=== PATIENT | female | born 1960 | race Caucasian/White ===

== ENCOUNTER → 2017-10-09 | Outpatient (CLI) | payer BC ==
--- NOTE | 2017-10-09 09:34 | US ---
EXAMINATION TYPE: US thyroid st tissue head/neck DATE OF EXAM: 10/09/2017 COMPARISON: NONE CLINICAL HISTORY: E02 Subclinical Iodine-Deficiency Hypothyroidism. GLAND SIZE: Right Lobe: 4.7 x 1.9 x 2.3 cm Overall Parenchyma: heterogenous Left Lobe: 4.5 x 1.6 x 1.9 cm Overall Parenchyma: heterogeneous Isthmus Thickness: 0.5 cm NODULES RIGHT: # of nodules measured on right: 0 LEFT: # of nodules measured on left: 0 ISTHMUS: # of nodules measured in the isthmus: 0 Bilateral neck scanned, normal appearing lymph nodes visualized Heterogeneous thyroid gland with diffusely increased vascular flow. No discrete measurable nodules ar e seen. IMPRESSION: Diffusely heterogenous and hypervascular thyroid gland suggests thyroiditis.
--- NOTE | 2017-10-10 10:38 | NM ---
EXAMINATION TYPE: NM thyroid image w uptake DATE OF EXAM: 10/10/2017 COMPARISON: Thyroid ultrasound yesterday. HISTORY: Subclinical iodine deficiency hypothyroidism per order. TECHNIQUE: Thyroid iodine uptake is calculated and images performed after the oral administration of 315 uCi I-123 uCi 1-123 Capsule. FINDINGS: There is heterogeneous distribution of activity throughout the gland slightly more prominen t and uniform in the right lobe versus left lobe. The 4 hour iodine uptake is calculated at 11% (nor mal range 8-14%), in the normal range. The 25-hour iodine uptake is calculated at 31% (normal range 1 5-35%), in the normal range. IMPRESSION: Heterogeneous scan correlates with ultrasound, normal uptake noted.
== END | disposition home or self-care (01) ==
LOC: RADUSMAIN 08:34
PROVIDERS: ATTEND Internal Medicine
DX: E07.9 Disorder of thyroid, unspecified (principal)
CPT/HCPCS: 76536; 78014

== ENCOUNTER → 2017-10-28 | Outpatient (CLI) | payer BC ==
--- NOTE | 2017-10-28 12:40 | BD ---
EXAMINATION TYPE: MG DEXA axial skeleton. DATE OF EXAM: 10/28/2017 COMPARISON: 06.16.2010 CLINICAL HISTORY: 57 YR OLD FEMALE: ICD-10 CODE: M85.9 DISORDER OF BONE Height: 65 Weight: 219 FRAX RISK QUESTIONS: Alcohol (3 or more units per day): NO Family History (Parent hip fracture): NO Glucocorticoids (More than 3mos): NO (Ex: prednisone, prednisolone, methylprednisolone, dexamethasone, and hydrocortisone). History of Fracture in Adulthood: YES Secondary Osteoporosis: YES 1. Type 1 Diabetes: NO 2. Hyperthyroidism: NO 3. Menopause before 45: YES 4. Malnutrition: NO 5. Chronic liver disease: NO Rheumatoid Arthritis: NO Current Tobacco Use: NO RISK FACTORS HISTORY OF: RT BROKEN GREAT TOE...> 50 YRS OLD Family History of Osteoporosis: NO Active: SO SO Diet low in dairy products/other sources of calcium: NO Postmenopausal woman: YES AT 36 YRS OLD Lost more than 2 inches in height since high school: NO Hyperparathyroidism: NO Adrenal Insufficiency: NO MEDICATIONS: Thyroid Medications: YES, SYNTHROID, FOR ONE MONTH SO FAR Additional Medications: BP MEDS, B12 Additional History: NONE TO NOTE EXAM MEASUREMENTS: Bone mineral densitometry was performed using the The Simple System. Bone mineral density as measured about the Lumbar spine is: ----- L1-L4(G/cm2): 1.407 T Score Values are as follows: ----- L1: 1.1 ----- L2: 1.4 ----- L3: 1.8 ----- L4: 2.9 ----- L1-L4: 1.9 Bone mineral density has: Increased 0.5% since study of: 06.16.2010 Bone mineral density about the R hip (g/cm2): 1.063 Bone mineral density about the L hip (g/cm2): 1.091 T Score values are as follows: -----R Neck: -0.5 -----L Neck: -0.1 -----R Total: 0.4 -----L Total: 0.7 Bone mineral density has: Decreased -4.7% since study of: 06.16.2010 FRAX%: THERE IS A 9.8% CHANCE OF A MAJOR OSTEOPOROTIC FX AND A 0.3% FOR A HIP FX....PROBABILITY OF FX IN 10 YRS TIME IMPRESSION: Normal (Values between +1 and -1 indicate normal bone mass). Consider repeating this study in 5 year s or sooner if there is some new clinical indication. NOTE: T-SCORE=SD OF THE YOUNG ADULT MEAN.
--- NOTE | 2017-10-30 11:31 | MM ---
Reason for exam: screening (asymptomatic). Last mammogram was performed 7 years and 4 months ago. History: Patient had first child at age 36. Physical Findings: A clinical breast exam by your physician is recommended on an annual basis and results should be correlated with mammographic findings. MG Screening Mammo w CAD Bilateral CC and MLO view(s) were taken. XCCL view(s) were taken of the left breast. Prior study comparison: June 16, 2010, bilateral digital screening mammogram. The breast tissue is heterogeneously dense. This may lower the sensitivity of mammography. There is no discrete abnormality. No significant changes when compared with prior studies. ASSESSMENT: Negative, BI-RAD 1 RECOMMENDATION: Routine screening mammogram of both breasts in 1 year.
== END | disposition home or self-care (01) ==
LOC: RADMAMWWP 06:56
PROVIDERS: ATTEND Internal Medicine
DX: Z12.31 Encounter for screening mammogram for malignant neoplasm of breast (principal); M85.9 Disorder of bone density and structure, unspecified
CPT/HCPCS: 77067; 77080

== ENCOUNTER 2017-11-08 07:45 | Day surgery (SDC) | payer BC ==
[2017-11-07 10:54] VITALS: BMI 32.1
[~2017-11-08 07:45] MED LIST: LACTATED RINGERS 1,000 ML IV SCH
[2017-11-08 08:09] VITALS: RESP 16; TEMP 98
[2017-11-08] MEDS ORDERED: LIDOCAINE 1% 20 ML VIAL (10MG/ML) FOR IV START INTRADERMA ONE (08:14)
[2017-11-08] MEDS ORDERED: PROPOFOL 10 MG/ML 20 ML VIAL IV ONE (08:36)
--- NOTE | 2017-11-08 08:48 | P.GSHP ---
History of Present Illness H&P Date: 11/08/17 Chief Complaint: Colon cancer screening Patient is here today for colonoscopy. Last colonoscopy a proximally 7 years ago. She believes that was normal. No family history of colon cancer. No bowel related complaints. Past Medical History Past Medical History: Hypertension, Thyroid Disorder Additional Past Medical History / Comment(s): BRONCHITIS, FX RT GREAT TOE History of Any Multi-Drug Resistant Organisms: None Reported Past Surgical History: Breast Surgery, Hysterectomy Additional Past Surgical History / Comment(s): CYST ON BRAIN REMOVED-BENIGN Past Anesthesia/Blood Transfusion Reactions: Postoperative Nausea & Vomiting ( PONV) Smoking Status: Former smoker - Past Family History Father History Unknown: Yes Mother Family Medical History: Deep Vein Thrombosis (DVT) Additional Family Medical History / Comment(s): PACEMAKER/AICD Brother(s) Family Medical History: AFIB, Congestive Heart Failure (CHF) Additional Family Medical History / Comment(s): CARDIAC ABLATIONS Medications and Allergies Home Medications Medication Instructions Recorded Confirmed Type Bisoprolol-Hctz 10-6.25 mg [Ziac 1 tab PO DAILY 08/06/16 11/08/17 History 10-6.25 MG] Cyanocobalamin [Vitamin B-12] 500 mcg PO DAILY 08/06/16 11/08/17 History Levothyroxine Sodium [Synthroid] 25 mcg PO DAILY 11/07/17 11/08/17 History Allergies Allergy/AdvReac Type Severity Reaction Status Date / Time No Known Allergies Allergy Verified 11/08/17 08:00 Surgical - Exam Vital Signs Temp Pulse Resp BP Pulse Ox 98 F 65 16 122/81 93 L 11/08/17 08:06 11/08/17 08:06 11/08/17 08:06 11/08/17 08:06 11/08/17 08:06 Physical exam: General: Well-developed, well-nourished HEENT: Normocephalic, sclerae nonicteric Abdomen: Nontender, nondistended Extremities: No edema Neuro: Alert and oriented Assessment and Plan (1) Colon cancer screening Narrative/Plan: Will proceed with colonoscopy at this time. Current Visit: Yes Status: Acute Code(s): Z12.11 - ENCOUNTER FOR SCREENING FOR MALIGNANT NEOPLASM OF COLON SNOMED Code(s): 030740014
--- NOTE | 2017-11-08 09:06 | P.PCN ---
Date of Procedure: 11/08/17 Procedure(s) Performed: PREOPERATIVE DIAGNOSIS: Colon cancer screening POSTOPERATIVE DIAGNOSIS: Transverse colon polyp, diverticulosis PROCEDURE: Colonoscopy with biopsy ANESTHESIA: MAC SURGEON: Barrie Smiley M.D. SPECIMENS: Transverse colon polyp ENDOSCOPIC PROCEDURE: The patient was placed on the endoscopy table in the left decubitus position. The Olympus colonoscope was inserted into the anus and passed under direct visualization to the base of the cecum. The appendiceal orifice was visualized. From that point the scope was slowly withdrawn inspecting all surfaces carefully. There were no neoplastic inflammatory or polypoid lesions throughout the cecum and ascending colon. In the transverse colon a small polyp was identified and removed using the biopsy forceps. The remainder of the descending sigmoid and rectum was normal. There was mild left-sided diverticulosis. Digital rectal examination was normal. The patient was taken to the recovery room in stable condition per anesthesia guidelines. RECOMMENDATIONS: Await biopsy results.
[2017-11-08 09:35] VITALS: BP 134/81; PULSE 76
--- NOTE | 2017-11-13 08:28 | CDI ---
Date: 11/13/17 CDS/Irrigation Pump Installer Name: Jo-Ann Deng Phone: If any questions, call Shawna Quiros Laundry Housekeeper at [phone] Patient Name: Ada Joshi Admit Date: 11/08/17 Discharge Date: 11/08/17 ATTENTION: The [facility] Coding Staff appreciate your assistance in clarifying documentation. Please respond to the clarification below the line at the bottom and electronically sign. The [facility] Coding staff will review the response and follow-up if needed. Please note: Queries are made part of the Legal Health Record. If you have any questions, please contact the Laundry Housekeeper. Dear Dr. Smiley, Please provide clarification on the method used to remove the polyp. Please clarify if hot or cold biopsy forceps were used. Thank you for your kind consideration. MTDD
== END 2017-11-08 09:45 | disposition home or self-care (01) ==
LOC: ORWHC2ENDO 07:45
PROVIDERS: ATTEND Surgery
DX: Z12.11 Encounter for screening for malignant neoplasm of colon (principal); D12.3 Benign neoplasm of transverse colon; K57.30 Diverticulosis of large intestine without perforation or abscess without bleeding; I10 Essential (primary) hypertension; E07.9 Disorder of thyroid, unspecified; Z87.891 Personal history of nicotine dependence; Z79.899 Other long term (current) drug therapy; Z79.890 Hormone replacement therapy
CPT/HCPCS: 88305; 45380; J2704

== ENCOUNTER 2018-07-02 13:17 | Emergency (ER) | payer BC ==
[2018-07-02 13:21] VITALS: TEMP 97.9
[2018-07-02] MEDS ORDERED: SODIUM CHLORIDE 0.9% 500 ML 500 ML IV STA (13:36)
[2018-07-02] MEDS ORDERED: ONDANSETRON 4 MG/2 ML VIAL IVP STA (13:36)
--- NOTE | 2018-07-02 13:42 | ED ---
General Adult HPI - General Chief complaint: Headache Stated complaint: Fell/hit head/chest Time Seen by Provider: 07/02/18 13:27 Source: patient Mode of arrival: wheelchair Limitations: no limitations - History of Present Illness Initial comments: 58-year-old female with past medical history of hypertension, hypothyroid, chronic migraines, hx of benign brain tumor 2008 patient does not have a neurologist or take medications presenting today with multiple complaints. Patient states that 3 days ago she fell, after she misstepped off a ledge while carrying an object and could not see where she was going, she fell forward hitting her chest. She denies any chest pain, palpitations, shortness of breath , dizziness, headaches prior to falling. She states it was mechanical in nature. She went to urgent care at that time where she was diagnosed with a rib fracture after chest XR. Patient was sent home. Patient states she has had the pain in her left side of her chest since. Patient states it increases with deep inspiration. Patient states that she was driving and noticed sparkles in her vision in both eyes, she denies any vision loss, diplopia or blurred vision. She states she then had a headache she states this is not the worst headache of her life. She states it is frontal, throbbing. Patient denies any nausea, vomiting, fever, chills, neck stiffness, syncope, loss of consciousness , speech changes, ataxia, facial asymmetry, paresthesias of the upper or lower extremities, muscle weakness. Remainder was negative. Patient. Anxious about upon arrival. Patient's vital signs stable. Patient chest pain and reducible to palpation of the left side of chest. - Related Data Home Medications Medication Instructions Recorded Confirmed Bisoprolol-Hctz 10-6.25 mg [Ziac 1 tab PO DAILY 08/06/16 07/02/18 10-6.25 MG] Previous Rx's Medication Instructions Recorded Ibuprofen 800 mg PO Q8H PRN 7 Days #21 tablet 07/02/18 diphenhydrAMINE [Benadryl] 50 mg PO HS PRN 7 Days #7 capsule 07/02/18 Allergies Allergy/AdvReac Type Severity Reaction Status Date / Time No Known Allergies Allergy Verified 07/02/18 14:04 Review of Systems ROS Statement: Those systems with pertinent positive or pertinent negative responses have been documented in the HPI. ROS Other: All systems not noted in ROS Statement are negative. Constitutional: Denies: fever, chills, night sweats ENT: Denies: ear pain, throat pain Respiratory: Denies: cough, dyspnea, wheezes, hemoptysis, stridor Cardiovascular: Reports: chest pain (left sided pain to touch of the anterior chest.). Denies: palpitations, dyspnea on exertion Gastrointestinal: Denies: abdominal pain, nausea, vomiting, diarrhea, constipation, hematemesis, melena, hematochezia Genitourinary: Denies: urgency, dysuria, frequency, hematuria, discharge Musculoskeletal: Denies: back pain Skin: Denies: rash Neurological: Reports: headache. Denies: weakness, numbness, paresthesias, confusion, abnormal gait, vertigo Past Medical History Past Medical History: Hypertension, Thyroid Disorder Additional Past Medical History / Comment(s): BRONCHITIS, FX RT GREAT TOE, previous brain tumor 09 History of Any Multi-Drug Resistant Organisms: None Reported Past Surgical History: Breast Surgery, Hysterectomy Additional Past Surgical History / Comment(s): CYST ON BRAIN REMOVED-BENIGN Past Anesthesia/Blood Transfusion Reactions: Postoperative Nausea & Vomiting ( PONV) Past Psychological History: No Psychological Hx Reported Smoking Status: Former smoker Past Alcohol Use History: None Reported Past Drug Use History: None Reported - Past Family History Father History Unknown: Yes Mother Family Medical History: Deep Vein Thrombosis (DVT) Additional Family Medical History / Comment(s): PACEMAKER/AICD Brother(s) Family Medical History: AFIB, Congestive Heart Failure (CHF) Additional Family Medical History / Comment(s): CARDIAC ABLATIONS General Exam - General Exam Comments Initial Comments: General: The patient is awake and alert, in no distress, and does not appear acutely ill. Eye: Pupils are equal, round and reactive to light, extra-ocular movements are intact. No nystagmus. There is normal conjunctiva bilaterally. No signs of icterus. Ears, nose, mouth and throat: There are moist mucous membranes and no oral lesions. Oropharynx is nonerythematous, patient has tenderness to palpation over the ethmoid and frontal sinuses. Neck: The neck is supple, there is no tenderness or JVD. Cardiovascular: There is a regular rate and rhythm. No murmur, rub or gallop is appreciated. Respiratory: Lungs are clear to auscultation, respirations are non-labored, breath sounds are equal. No wheezes, stridor, rales, or rhonchi. Gastrointestinal: Soft, non-distended, non-tender abdomen without masses or organomegaly noted. There is no rebound or guarding present. No CVA tenderness. Bowel sounds are unremarkable.] Musculoskeletal: There is reproducible pain of the left chest pain wall to light palpation. Normal ROM at the shoulders and UE, no tenderness. Strength 5/ 5 of the UE and LE. Sensation intact of the UE and LE equally b/l. Radial pulses equal bilaterally 2+. Neurological: A&O x 3. 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 Able to follow simple verbal. Able to name a common object (pen). High quality, labial (pa) and lingual (la) speech. Low quality posterior pharynx/larynx (ga) voice sounds. Able to express general knowledge (days in a week). No hemineglect or inattention noted. Finger agnosia (-) and spatially oriented (identified L index finger touched R shoulder with L index finger). Light touch and temperature sensation present over the face, chest, abdomen, back, UE bilaterally, and LE bilaterally. Able to localize point during point localization b/l and extinction. No visible bulk atrophy, hypertrophy, fasciculations, or myoclonus of the UE or LE b/l. Full PROM in UE and LE b/l. Bilateral muscle strength 5/5 for the following muscles: deltoid, biceps, triceps, brachioradialis, wrist extensors/flexor, hip flexor, hip abductors/adductors, hamstrings, quadriceps, feet dorsiflexors/plantar flexors. Finger to nose, finger to the examiners finger, and heel to oconnell coordinated and accurate b/l. Coordinated and even demonstration of hand flip, finger to thumb, and toe tap b/l. Gait is coordinated and even in stride with tandem. (-) pronator drift. No nuchal rigidity. (-) Brudzinskis and Kernig signs. Skin: Skin is warm and dry and no rashes or lesions are noted. Psychiatric: Cooperative, appropriate mood & affect, normal judgment. Limitations: no limitations Course Vital Signs 07/02/18 07/02/18 07/02/18 13:19 13:36 18:27 Temperature 97.9 F Pulse Rate 78 72 Respiratory 18 22 18 Rate Blood Pressure 187/94 136/85 O2 Sat by Pulse 100 98 Oximetry - Reevaluation(s) Reevaluation #1: No pain relief with morphine, pt given toradol, benadryl and reglan. Will reassess. 07/02/18 16:45 Reevaluation #2: Pt resting comfortably in bed, sleeping 07/02/18 18:05 EKG Findings - EKG Comments: EKG Findings:: A 12-lead EKG was performed and shows the following: Rate is 73 bpm, NY interval 124 ms, shortness duration 80 ms, QT/QTC 380/40 ms EKG, and rhythm is normal sinus. There are normal QRS complexes and normal R-wave progression. ST segments have no elevation or depression, and NY segments appear normal. Medical Decision Making - Medical Decision Making No focal neurological deficits on exam. Patient's elevated white blood cell count, remainder of CBC and CMP unremarkable. Cardiac panel including troponins negative. Coagulation studies within normal limits. Chest x-ray negative for acute cardiopulmonary process. CT obtained revealing no acute intracranial process. Patient was given 2 g morphine, she stated this did not help. Patient was given Reglan, Toradol and Benadryl upon reevaluation patient stated that headache had improved significantly. She was feeling much better. Repeat neurological exam no changes. Case discussed in detail with Dr. Mccauley at this time feel patient is stable for discharge. Patient is agreeable discharged, stating that she was ready to go home. Patient's symptoms are almost completely relieved. Patient will be discharged with a prescription for Benadryl and ibuprofen 800 for further pain management. At this time feel patient headache was most likely migraine with aura. Patient was instructed to follow-up with her primary care provider one to 2 days. Return parameters discussed in detail with patient, patient verbalizes understanding. Patient discharged in stable condition. Ambulating without difficulty. - Lab Data Result diagrams: 07/02/18 14:32 07/02/18 14:32 Lab Results 07/02/18 07/02/18 07/02/18 Range/Units 14:32 14:32 14:32 WBC 13.0 H (3.8-10.6) k/uL RBC 4.82 (3.80-5.40) m/uL Hgb 14.1 (11.4-16.0) gm/dL Hct 41.8 (34.0-46.0) % MCV 86.8 (80.0-100.0) fL MCH 29.3 (25.0-35.0) pg MCHC 33.7 (31.0-37.0) g/dL RDW 14.0 (11.5-15.5) % Plt Count 387 (150-450) k/uL Neutrophils % 54 % Lymphocytes % 38 % Monocytes % 4 % Eosinophils % 2 % Basophils % 0 % Neutrophils # 7.0 (1.3-7.7) k/uL Lymphocytes # 5.0 H (1.0-4.8) k/uL Monocytes # 0.5 (0-1.0) k/uL Eosinophils # 0.3 (0-0.7) k/uL Basophils # 0.1 (0-0.2) k/uL PT (9.0-12.0) sec INR (<1.2) APTT (22.0-30.0) sec Sodium 139 (137-145) mmol/L Potassium 4.9 (3.5-5.1) mmol/L Chloride 102 (98-107) mmol/L Carbon Dioxide 29 (22-30) mmol/L Anion Gap 8 mmol/L BUN 18 H (7-17) mg/dL Creatinine 0.70 (0.52-1.04) mg/dL Est GFR (CKD-EPI)AfAm >90 (>60 ml/min/1.73 sqM) Est GFR (CKD-EPI)NonAf >90 (>60 ml/min/1.73 sqM) Glucose 98 (74-99) mg/dL Calcium 10.4 H (8.4-10.2) mg/dL Magnesium 2.0 (1.6-2.3) mg/dL Total Bilirubin 0.6 (0.2-1.3) mg/dL AST 22 (14-36) U/L ALT 25 (9-52) U/L Alkaline Phosphatase 65 (38-126) U/L Total Creatine Kinase 40 (30-135) U/L CK-MB (CK-2) 0.7 (0.0-2.4) ng/mL CK-MB (CK-2) Rel Index 1.8 Troponin I <0.012 (0.000-0.034) ng/mL Total Protein 7.4 (6.3-8.2) g/dL Albumin 4.4 (3.5-5.0) g/dL 07/02/18 Range/Units 14:32 WBC (3.8-10.6) k/uL RBC (3.80-5.40) m/uL Hgb (11.4-16.0) gm/dL Hct (34.0-46.0) % MCV (80.0-100.0) fL MCH (25.0-35.0) pg MCHC (31.0-37.0) g/dL RDW (11.5-15.5) % Plt Count (150-450) k/uL Neutrophils % % Lymphocytes % % Monocytes % % Eosinophils % % Basophils % % Neutrophils # (1.3-7.7) k/uL Lymphocytes # (1.0-4.8) k/uL Monocytes # (0-1.0) k/uL Eosinophils # (0-0.7) k/uL Basophils # (0-0.2) k/uL PT 9.6 (9.0-12.0) sec INR 1.0 (<1.2) APTT 22.5 (22.0-30.0) sec Sodium (137-145) mmol/L Potassium (3.5-5.1) mmol/L Chloride (98-107) mmol/L Carbon Dioxide (22-30) mmol/L Anion Gap mmol/L BUN (7-17) mg/dL Creatinine (0.52-1.04) mg/dL Est GFR (CKD-EPI)AfAm (>60 ml/min/1.73 sqM) Est GFR (CKD-EPI)NonAf (>60 ml/min/1.73 sqM) Glucose (74-99) mg/dL Calcium (8.4-10.2) mg/dL Magnesium (1.6-2.3) mg/dL Total Bilirubin (0.2-1.3) mg/dL AST (14-36) U/L ALT (9-52) U/L Alkaline Phosphatase (38-126) U/L Total Creatine Kinase (30-135) U/L CK-MB (CK-2) (0.0-2.4) ng/mL CK-MB (CK-2) Rel Index Troponin I (0.000-0.034) ng/mL Total Protein (6.3-8.2) g/dL Albumin (3.5-5.0) g/dL Disposition Clinical Impression: Headache Disposition: HOME SELF-CARE Condition: Good Instructions: Acute Headache (ED) Additional Instructions: Please use medication as discussed. Please follow-up with family doctor in the next 2 days. Please return to emergency room if the symptoms increase or worsen or for any other concerns. Prescriptions: diphenhydrAMINE [Benadryl] 50 mg PO HS PRN 7 Days #7 capsule PRN Reason: Headache Ibuprofen 800 mg PO Q8H PRN 7 Days #21 tablet PRN Reason: Pain Is patient prescribed a controlled substance at d/c from ED?: No Referrals: Rosalinda Cox MD [Primary Care Provider] - 1-2 days Time of Disposition: 19:02
[2018-07-02 14:47] LABS: Basophils # (A) 0.1 k/uL (0-0.2); Basophils % (A) 0 %; Eosinophils # (A) 0.3 k/uL (0-0.7); Eosinophils % (A) 2 %; HCT 41.8 % (34.0-46.0); HGB 14.1 gm/dL (11.4-16.0); Lymphocytes % (A) 38 %; MCH 29.3 pg (25.0-35.0); MCHC 33.7 g/dL (31.0-37.0); MCV 86.8 fL (80.0-100.0); Mean Platelet Volume 7.4; Monocytes # (A) 0.5 k/uL (0-1.0); Monocytes % (A) 4 %; Neutrophils % (A) 54 %; Platelet Count 387 k/uL (150-450); RBC 4.82 m/uL (3.80-5.40)
[2018-07-02] MEDS ORDERED: ALPRAZolam 1 MG TAB PO STA (14:51)
[2018-07-02 14:56] LABS: ALT 25 U/L (9-52); AST 22 U/L (14-36); Albumin 4.4 g/dL (3.5-5.0); Alkaline Phosphatase 65 U/L (38-126); Anion Gap 8 mmol/L; Blood Urea Nitrogen 18 mg/dL (7-17); Calcium 10.4 mg/dL (8.4-10.2); Carbon Dioxide 29 mmol/L (22-30); Chloride 102 mmol/L (98-107); Glucose 98 mg/dL (74-99); Potassium 4.9 mmol/L (3.5-5.1); Sodium 139 mmol/L (137-145); Total Bilirubin 0.6 mg/dL (0.2-1.3); Total Protein 7.4 g/dL (6.3-8.2)
[2018-07-02 14:58] LABS: Partial Thromboplastin Time 22.5 sec (22.0-30.0); Prothrombin Time 9.6 sec (9.0-12.0)
[2018-07-02 15:10] LABS: Creatine Kinase 40 U/L (30-135)
[2018-07-02 15:22] LABS: Creatine Kinase MB 0.7 ng/mL (0.0-2.4); Troponin I <0.012 ng/mL (0.000-0.034)
[2018-07-02] MEDS ORDERED: MORPHINE SULFATE 2 MG/ML SYRINGE IVP STA (15:41)
--- NOTE | 2018-07-02 15:46 | XR ---
EXAMINATION TYPE: XR chest 2V, XR ribs RT DATE OF EXAM: 07/02/2018 CLINICAL HISTORY: Pain, Fall Four views of the ribs fail demonstrate evidence for displaced rib fracture or secondary sign of rib fracture. Visualized lungs are clear. No evidence for pneumothorax. IMPRESSION: 1. No displaced rib fractures seen. ICD 10 NO FRACTURE, INITIAL EVALUATION EXAMINATION TYPE: XR chest 2V, XR ribs RT DATE OF EXAM: 07/02/2018 COMPARISON: NONE HISTORY: Shortness of breath TECHNIQUE: Frontal and lateral views of the chest are obtained. FINDINGS: Scattered senescent parenchymal changes noted. Hyperinflation compatible with COPD. No evidence for infiltrate. No evidence for atelectasis. Heart size is stable. Mediastinal structures are stable and grossly unremarkable. No evidence for hilar prominence. Degenerative changes dorsal spine. IMPRESSION: 1. No evidence for acute pulmonary disease.
--- NOTE | 2018-07-02 15:55 | CT ---
EXAMINATION TYPE: CT brain wo con DATE OF EXAM: 07/02/2018 COMPARISON: CT brain 06/17/2010 HISTORY: Fall 4 days ago. Headache today with leg and feet numbness. CT DLP: 1103.4 mGycm Automated exposure control for dose reduction was used. CT through the brain. Coronal and sagittal re constructions. FINDINGS: Postcraniotomy changes are again noted. Absent septum pellucidum changes are stable. Corpus callosum shows postop changes, partial absence. There is no hemorrhage or hydrocephalus. Orbits are symmetric. Mucosal changes are present within the ethmoid air cells. IMPRESSION: NO ACUTE ABNORMALITY.
[2018-07-02] MEDS ORDERED: diphenhydrAMINE 50 MG/ML 1 ML VIAL IVP STA (16:55)
[2018-07-02] MEDS ORDERED: KETOROLAC 30 MG/ML 1 ML VIAL IVP STA (16:55)
[2018-07-02] MEDS ORDERED: METOCLOPRAMIDE 5 MG/ML 2 ML VIAL IVP STA (16:55)
[2018-07-02 18:27] VITALS: BP 136/85; PULSE 72; RESP 18
== END 2018-07-02 19:13 | disposition home or self-care (01) ==
LOC: EC 13:17
DX: R51 Headache (principal); R07.9 Chest pain, unspecified; D72.829 Elevated white blood cell count, unspecified; I10 Essential (primary) hypertension; Z86.011 Personal history of benign neoplasm of the brain; Z87.891 Personal history of nicotine dependence; Z79.899 Other long term (current) drug therapy
CPT/HCPCS: 36415; 70450; 71046; 80053; 82550; 82553; 83735; 84484; 85025; 85610; 85730; 93005; 96374; 96375; 99284

== ENCOUNTER → 2019-05-15 | Outpatient (CLI) | payer BC ==
--- NOTE | 2019-05-15 13:18 | XR ---
EXAMINATION TYPE: XR foot complete LT, XR calcaneus 2V LT DATE OF EXAM: 05/15/2019 CLINICAL HISTORY: Left heel pain for 4 months, painful weightbearing TECHNIQUE: Frontal, lateral, and oblique images of the left foot are obtained. 2 views of the left ca lcaneus were also obtained COMPARISON: None FINDINGS: There is no acute fracture/dislocation evident in the left foot. The joint spaces in the left foot appear within normal limits other than small osteophytes of the distal interphalangeal join ts. Soft tissue swelling of the plantar surface of the foot is seen with small plantar heel spur. Boh ler's angle is within normal limits as there is no calcaneal fracture seen. No suspicious osseous les ion. Osseous mineralization is within normal limits. IMPRESSION: 1. No acute fracture or dislocation in the left foot. 2. Small plantar heel spur and subcutaneous edema over the plantar surface of the foot. Consider plan ter fasciitis.
== END | disposition home or self-care (01) ==
LOC: RADXRMAIN 12:07
PROVIDERS: ATTEND Internal Medicine
DX: M77.32 Calcaneal spur, left foot (principal)

== ENCOUNTER 2020-09-27 16:41 | Emergency (ER) | payer BC, OTHER ==
[2020-09-27 16:53] VITALS: RESP 18
--- NOTE | 2020-09-27 16:57 | ED ---
Fall HPI - General Source: patient Mode of arrival: wheelchair <Branden Valderrama - Last Filed: 09/27/20 16:57> <SandhyaMariano Logan - Last Filed: 09/27/20 18:53> - General Chief Complaint: Fall Stated Complaint: Fall,Head Injury Time Seen by Provider: 09/27/20 16:57 - History of Present Illness Initial Comments: Dictation was produced using [employer] dictation software. please excuse any grammatical, word or spelling errors. This patient was cared for during a federal and state declared state of emergency secondary to Covid 19 Chief Complaint: 60-year-old female presents with head pain, shoulder pain after fall History of Present Illness: Is a 60-year-old female. Approximately 30 minutes prior to arrival she was walking down her father's driveway when it was slippery. She hit a slick patch of ice on the driveway causing her to fall backwards landing on her back. Patient denies any loss of consciousness. She did get up and had no problems walking. She states she has pain to her whole left side of her body is worse with movement. Patient states most of her pain is in her left shoulder. She does have pain with abduction past 90. She has history of hypertension. Denies any other medical problems. Patient states since falling she's been feeling dizzy. She denies any neck pain. The ROS documented in this emergency department record has been reviewed and confirmed by me. Those systems with pertinent positive or negative responses have been documented in the HPI. All other systems are other negative and/or noncontributory. PHYSICAL EXAM: General Impression: Alert and oriented x3, acute distress secondary to pain HEENT: Normocephalic atraumatic, extra-ocular movements intact, pupils equal and reactive to light bilaterally, mucous membranes moist. Cardiovascular: Heart regular rate and rhythm Chest: Able to complete full sentences, no retractions, no tachypnea Abdomen: abdomen soft, non-tender, non-distended, no organomegaly Musculoskeletal: Pulses present and equal in all extremities, no peripheral edema Left shoulder: There is some palpation over the proximal humerus, pain with ab duction past 45. Motor: no focal deficits noted Neurological: CN II-XII grossly intact, no focal motor or sensory deficits noted Skin: Intact with no visualized rashes Psych: Normal affect and mood ED course: 60-year-old female presents after fall. Vital signs upon arrival are within acceptable limits. (Mariano Arthur) - Related Data Home Medications Medication Instructions Recorded Confirmed Bisoprolol-Hctz 10-6.25 mg [Ziac 1 tab PO DAILY 08/06/16 09/27/20 10-6.25 MG] Levothyroxine Sodium [Synthroid] 75 mcg PO DAILY 09/27/20 09/27/20 Previous Rx's Medication Instructions Recorded HYDROcodone/APAP 5-325MG [Sab[place] 1 tab PO Q6HR PRN 3 Days #12 tab 09/27/20 5-325] Allergies Allergy/AdvReac Type Severity Reaction Status Date / Time No Known Allergies Allergy Verified 09/27/20 18:21 Review of Systems ROS Other: All systems not noted in ROS Statement are negative. <Branden Valderrama - Last Filed: 09/27/20 16:57> ROS Other: All systems not noted in ROS Statement are negative. <Mariano Arthur - Last Filed: 09/27/20 18:53> ROS Statement: Those systems with pertinent positive or pertinent negative responses have been documented in the HPI. Past Medical History Past Medical History: Hypertension, Thyroid Disorder Additional Past Medical History / Comment(s): BRONCHITIS, previous brain tumor 09 History of Any Multi-Drug Resistant Organisms: None Reported Past Surgical History: Breast Surgery, Hysterectomy Additional Past Surgical History / Comment(s): CYST ON BRAIN REMOVED-BENIGN Past Anesthesia/Blood Transfusion Reactions: Postoperative Nausea & Vomiting (PONV) Past Psychological History: No Psychological Hx Reported Smoking Status: Never smoker Past Alcohol Use History: None Reported Past Drug Use History: None Reported - Past Family History Father History Unknown: Yes Mother Family Medical History: Deep Vein Thrombosis (DVT) Additional Family Medical History / Comment(s): PACEMAKER/AICD Brother(s) Family Medical History: AFIB, Congestive Heart Failure (CHF) Additional Family Medical History / Comment(s): CARDIAC ABLATIONS <Branden Valderrama - Last Filed: 09/27/20 16:57> Course Vital Signs 09/27/20 16:50 Temperature 99.0 F Pulse Rate 89 Respiratory 18 Rate Blood Pressure 168/92 O2 Sat by Pulse 98 Oximetry Medical Decision Making <Mariano Arthur - Last Filed: 09/27/20 18:53> - Medical Decision Making Computed tomography scan of the head and C-spine shows no acute processes. Chest x-ray is nonacute. Shoulder x-ray shows mild spurring with no fracture or acute processes. Pelvis x-rays negative. Clinical presentation consistent with left shoulder strain and head contusion. Patient has some symptoms of concussion. Concussion precautions were discussed. Patient advised follow-up with PCP. Return parameters also discussed. Patient will be discharged. (Mariano Arthur) Disposition <Branden Valderrama - Last Filed: 09/27/20 16:57> Is patient prescribed a controlled substance at d/c from ED?: Yes If prescribed controlled substance>3 days was MAPS reviewed?: Prescribed <3 Days Time of Disposition: 18:53 <Mariano Arthur - Last Filed: 09/27/20 18:53> Clinical Impression: Fall, Concussion, Shoulder strain Disposition: HOME SELF-CARE Condition: Good Instructions (If sedation given, give patient instructions): Fall Prevention for Older Adults (ED), Concussion (ED) Prescriptions: HYDROcodone/APAP 5-325MG [S[place] 5-325] 1 tab PO Q6HR PRN 3 Days #12 tab PRN Reason: Severe Pain Referrals: Rosalinda Cox MD [Primary Care Provider] - 1-2 days
[2020-09-27] MEDS ORDERED: MORPHINE SULFATE 4 MG/ML SYRINGE IV STA (17:06)
--- NOTE | 2020-09-27 18:10 | CT ---
EXAMINATION TYPE: CT brain cheryl wo con DATE OF EXAM: 09/27/2020 COMPARISON: CT brain 07/02/2018 HISTORY: fall, posterior head injury CT DLP: 1449.8 mGycm Automated exposure control for dose reduction was used. Images obtained of the brain and cervical spine with no contrast. There is mild cerebral atrophy. There is no mass effect nor midline shift. There is no sign of intrac ranial hemorrhage. There is a cavum septum pellucidum which is normal variation. There is old right frontal craniotomy defect. The skull base is intact. There is normal aeration of t he mastoid sinuses. There is mucosal thickening in the ethmoid air cells. The cervical vertebra have normal alignment. There is degenerative mild spur formation in the mid and lower cervical spine. There is no compression fracture. There is multilevel mild hypertrophic facet arthropathy. I see no bony destructive process. IMPRESSION: Spondylotic changes in the cervical spine. No fracture. Mild cerebral atrophy. No acute intracranial abnormality. There is some ethmoid sinusitis similar to old exam.
[2020-09-27] MEDS ORDERED: HYDROmorphone 0.5 MG/0.5 ML SYRINGE IVP STA (18:23)
--- NOTE | 2020-09-27 18:27 | XR ---
EXAMINATION TYPE: XR chest 2V DATE OF EXAM: 09/27/2020 COMPARISON: 07/02/2018 HISTORY: Chest pain TECHNIQUE: 2 views FINDINGS: Heart and mediastinum are normal. Lungs are clear. Diaphragm is normal. Bony thorax appears intact. IMPRESSION: Normal chest. There is clearing of the minimal pleural reaction left lung base compared t o old exam.
--- NOTE | 2020-09-27 18:30 | XR ---
EXAMINATION TYPE: XR shoulder complete LT DATE OF EXAM: 09/27/2020 COMPARISON: NONE HISTORY: Shoulder pain TECHNIQUE: 3 views FINDINGS: I see no fracture nor dislocation. There is minor spurring at the glenohumeral joint. IMPRESSION: Mild spurring. No fracture.
--- NOTE | 2020-09-27 18:44 | XR ---
EXAMINATION TYPE: XR pelvis AP view DATE OF EXAM: 09/27/2020 COMPARISON: NONE HISTORY: Pain TECHNIQUE: Single view FINDINGS: Pelvic ring is intact. Proximal femurs and hip joints are intact. Sacroiliac joints are intact. IMPRESSION: Normal pelvis. No fracture seen.
[2020-09-27] MEDS ORDERED: ACET/COD 300 MG/30 MG STARTER PACK 6 TAB BTL PO STA (18:53)
[2020-09-27 19:18] VITALS: BP 138/72; PULSE 80; TEMP 97.9
== END 2020-09-27 19:18 | disposition home or self-care (01) ==
LOC: EC 16:41
DX: S06.0X0A Concussion without loss of consciousness, initial encounter (principal); S46.912A Strain of unspecified muscle, fascia and tendon at shoulder and upper arm level, left arm, initial encounter; E07.9 Disorder of thyroid, unspecified; I10 Essential (primary) hypertension; Z79.890 Hormone replacement therapy; Z79.899 Other long term (current) drug therapy; Z90.710 Acquired absence of both cervix and uterus; W00.2XXA Other fall from one level to another due to ice and snow, initial encounter; Y92.89 Other specified places as the place of occurrence of the external cause
CPT/HCPCS: 72170; 73030; 71046; 72125; 70450; 99284; 96374; 96375; J2270; J1170